=== PATIENT | male | born 1960 | race Caucasian/White ===

== ENCOUNTER 2017-11-01 07:38 | Day surgery (SDC) | payer BC ==
[2017-10-30 11:54] VITALS: BMI 28.8
[~2017-11-01 07:38] MED LIST: DEXAMETHASONE SOD PHOSPHATE 10 MG/ML 1 ML VIAL IV ONE; LACTATED RINGERS 1,000 ML IV SCH; MIDAZOLAM 2 MG/2 ML VIAL IV PRN; ONDANSETRON 4 MG/2 ML VIAL IVP ONE; SCOPOLAMINE 1.5MG/72HR PATCH TRANSDERM ONE; ceFAZolin IN SWFI 2 GM/20 ML SYRINGE IVP ONE; fentaNYL (PF) 50 MCG/ML 2 ML AMP IV PRN
[2017-11-01] MEDS ORDERED: LIDOCAINE 1% 20 ML VIAL (10MG/ML) FOR IV START INTRADERMA ONE (08:19)
[2017-11-01] MEDS ORDERED: GLYCOPYRROLATE 0.2 MG/ML 2 ML VIAL ONE (09:21)
[2017-11-01] MEDS ORDERED: HYDROmorphone (PF) 1 MG/ML ONE (09:21)
[2017-11-01] MEDS ORDERED: PROPOFOL 10 MG/ML 20 ML VIAL IV ONE (09:21)
[2017-11-01] MEDS ORDERED: LIDOCAINE 1% INJ 10MG/ML (20 ML MDV) ONE (09:21)
[2017-11-01] MEDS ORDERED: MIDAZOLAM 2 MG/2 ML VIAL ONE ×2 (09:21)
[2017-11-01] MEDS ORDERED: ceFAZolin 1,000 MG in SODIUM CHLORIDE 0.9% 1,000 ML IRRIGATION ONE (09:49)
[2017-11-01] MEDS ORDERED: BUPIVACAINE (PF) 0.25% 30 ML VIAL SQ ONE (10:12)
[2017-11-01 10:43] VITALS: TEMP 97
--- NOTE | 2017-11-01 11:40 | FL ---
EXAMINATION TYPE: FL guidance operating room DATE OF EXAM: 11/01/2017 CLINICAL HISTORY: Left ankle pain. Open reduction internal fixation of the left ankle fracture. TECHNIQUE: Fluoroscopy. COMPARISON: None. FINDINGS/IMPRESSION: Fluoroscopic guidance was provided during procedure performed by Dr. De La O. A t otal of 7 seconds of fluoroscopic time was utilized during the procedure and 2 spot images was acquir ed demonstrating open reduction internal fixation of the left ankle.
[2017-11-01 11:46] VITALS: RESP 16
[2017-11-01 12:11] VITALS: PULSE 40
[2017-11-01 12:52] VITALS: BP 146/81
--- NOTE | 2017-11-03 20:39 | OP ---
OPERATIVE REPORT DATE OF SURGERY: 11/01/17 SURGEON: Robbin De La O DO PAPER CLEANER: Faviola Newman NP PREOPERATIVE DIAGNOSIS:: Oblique fracture distal left fibula. POSTOPERATIVE DIAGNOSIS:: Oblique fracture distal left fibula. OPERATION:: Open reduction and internal fixation of minimally displaced oblique fracture of the distal left fibula with buttress fixation. ESTIMATED BLOOD LOSS:: SPECIMEN TAKEN:: DESCRIPTION OF THE PROCEDURE: The patient was taken to the operative suite and placed in supine position. General inhalation anesthesia was performed by the department of anesthesiology. A Betadine prep was carried out over the left foot and ankle and prepared. Sterile drapes applied in the usual manner. The pneumatic tourniquet was inflated to 350 mmHg. Lateral incision was developed over the distal fibula and the area of oblique fracture. Blunt dissection through the subcutaneous tissues were performed. Retraction of the superficial nerves and vessels is performed. The periosteum is elevated in preparation for reduction. A lobster balloon clamp was utilized in reducing the fracture anatomically. A 6 hole plate was shaped for position along the distal fibula. The plate was secured with cancellous screws. The lobster clamp was removed and the fracture was stable. X-rays were obtained. The procedure documented its anatomic position. The area was irrigated. Deep fascia approximated with #2-0 Ethibond Vicryl suture. Subcutaneous tissue was approximated with 2-0 Vicryl. The skin approximated with skin clips. Betadine, Adaptic and sterile pressure dressing was applied. A short leg posterior splint was applied. The patient transferred to the recovery room in satisfactory postop condition. GROSS PATHOLOGY: Oblique fracture distal left fibula, minimally displaced MMODL / IJN: [id number] / [facility]
== END 2017-11-01 13:11 | disposition home or self-care (01) ==
LOC: OR 07:38
PROVIDERS: ATTEND Orthopaedic Surgery
DX: S82.832A Other fracture of upper and lower end of left fibula, initial encounter for closed fracture (principal); X50.1XXA Overexertion from prolonged static or awkward postures, initial encounter; Z79.1 Long term (current) use of non-steroidal anti-inflammatories (NSAID); Z79.891 Long term (current) use of opiate analgesic; R00.1 Bradycardia, unspecified; Z79.82 Long term (current) use of aspirin; J44.9 Chronic obstructive pulmonary disease, unspecified; F17.200 Nicotine dependence, unspecified, uncomplicated
CPT/HCPCS: 73600; 27792; C1713; J2250; J1100; J0690 ×2; J2001; J1170; J2704

== ENCOUNTER → 2018-06-03 | Day surgery (SDC) | payer BC ==
[~2018-06-03] MED LIST changes: -DEXAMETHASONE SOD PHOSPHATE 10 MG/ML 1 ML VIAL IV ONE; +GLUCAGON 1 MG/ML VIAL ONE; +LACTATED RINGERS 1,000 ML IV ONE; +LIDOCAINE 1% 20 ML VIAL (10MG/ML) FOR IV START INTRADERMA PRN; +LIDOCAINE 1% INJ 10MG/ML (20 ML MDV) ONE; -MIDAZOLAM 2 MG/2 ML VIAL IV PRN; -ONDANSETRON 4 MG/2 ML VIAL IVP ONE; +PROPOFOL 10 MG/ML 20 ML VIAL IV ONE; -SCOPOLAMINE 1.5MG/72HR PATCH TRANSDERM ONE; -ceFAZolin IN SWFI 2 GM/20 ML SYRINGE IVP ONE; -fentaNYL (PF) 50 MCG/ML 2 ML AMP IV PRN
[2018-06-03 08:40] VITALS: RESP 18; TEMP 97.2
--- NOTE | 2018-06-03 09:05 | P.GSHP ---
History of Present Illness H&P Date: 06/03/18 Chief Complaint: Screening colonoscopy This is a 57-year-old male referred from Dr. Contreras. Patient rents today for screening colonoscopy. Denies a significant GI complaints. Past Medical History Additional Past Medical History / Comment(s): leg cramps History of Any Multi-Drug Resistant Organisms: None Reported Past Surgical History: Back Surgery Additional Past Surgical History / Comment(s): LAMINECTOMY 1995, LEFT WRIST 1977 ,rt shoulder repair-2015 Past Anesthesia/Blood Transfusion Reactions: No Reported Reaction Past Psychological History: No Psychological Hx Reported Smoking Status: Former smoker Past Alcohol Use History: None Reported Additional Past Alcohol Use History / Comment(s): JANUARY 15, 2018. HAD SMOKED FOR 35 YRS. Past Drug Use History: None Reported - Past Family History Sister(s) Family Medical History: Cancer Additional Family Medical History / Comment(s): PANCREATIC CA Father Family Medical History: Cancer Medications and Allergies Home Medications Medication Instructions Recorded Confirmed Type Aspirin EC [Ecotrin] 81 mg PO DAILY 07/07/15 06/02/18 History Multivitamins, Thera [Multivitamin 1 tab PO DAILY 06/02/18 06/02/18 History (formulary)] Testosterone Dose Unknown 1 dose IM DIRECTED 06/02/18 06/02/18 History Allergies Allergy/AdvReac Type Severity Reaction Status Date / Time No Known Allergies Allergy Verified 06/02/18 08:21 Surgical - Exam Vital Signs Temp Pulse Resp BP Pulse Ox 97.2 F L 78 18 165/97 99 06/03/18 08:38 06/03/18 08:38 06/03/18 08:38 06/03/18 08:38 06/03/18 08:38 - General well developed, no distress - Eyes PERRL - ENT normal pinna - Neck no masses - Respiratory normal expansion - Cardiovascular Rhythm: regular - Abdomen Abdomen: soft, non tender Assessment and Plan Assessment: We'll perform screening colonoscopy.
--- NOTE | 2018-06-03 09:28 | P.OP ---
Date of Procedure: 06/03/18 Preoperative Diagnosis: Screening colonoscopy Postoperative Diagnosis: Diverticulosis Incomplete colonoscopy Procedure(s) Performed: Colonoscopy Anesthesia: MAC Surgeon: Jag Liang Pathology: none sent Condition: stable Disposition: PACU Description of Procedure: The patient's placed on the endoscopy table in the lateral position. He received IV sedation. Digital rectal exam was performed which revealed no abnormalities. The prostate was symmetric without nodules. The possible colonoscope was then placed patient anus passed with colon. The scope could not be passed beyond the splenic flexure secondary to tortuosity valve. Several times made to maneuver the colonoscope. There was significant spasm of the colon. Glucagon was given. The scope could not be advanced. At this point scope withdrawn and the descending colon appeared normal. In the sigmoid colon there is diverticular changes. Scope was then brought back the rectum. Scope was withdrawn for patient. Patient was scheduled for a barium enema.
[2018-06-03 10:14] VITALS: BP 139/80; PULSE 62
--- NOTE | 2018-06-03 20:23 | FL ---
EXAMINATION TYPE: FL barium enema DATE OF EXAM: 06/03/2018 CLINICAL HISTORY: 57-year-old male incomplete routine screening colonoscopy. Endoscope unable to be a dvanced beyond the splenic flexure. TECHNIQUE: A double contrast barium enema study is performed. COMPARISON: None. FINDINGS: Certified Financial Planner view of the abdomen shows nonobstructive bowel gas pattern with residual air throughout the col on. There is mild diverticular change within the sigmoid colon. Additional couple small diverticula withi n the descending colon. No evidence of any mass or polyp, obstructing or constricting lesion througho ut the colon. The appendix was filled and appeared normal. The terminal ileum was refluxed and appears within norm al limits. IMPRESSION: Mild diverticular change in the left side of the colon. No suspicious mass or polyp identified.
== END | disposition home or self-care (01) ==
LOC: ORWHC2ENDO 08:19
PROVIDERS: ATTEND Surgery
DX: Z12.11 Encounter for screening for malignant neoplasm of colon (principal); Q43.8 Other specified congenital malformations of intestine; K58.9 Irritable bowel syndrome, unspecified; K57.30 Diverticulosis of large intestine without perforation or abscess without bleeding; Z87.891 Personal history of nicotine dependence; Z79.82 Long term (current) use of aspirin; Z79.890 Hormone replacement therapy
CPT/HCPCS: 74270; 45330; J1610; J2001; J2704

== ENCOUNTER 2018-12-07 19:58 | Emergency (ER) | payer BC ==
[2018-12-07 20:05] VITALS: BP 142/74; PULSE 57; RESP 22; TEMP 98.8
[2018-12-07] MEDS ORDERED: BUPIVACAINE (PF) 0.5% 30 ML VIAL MISCELLANE STA (20:22)
--- NOTE | 2018-12-07 20:26 | ED ---
Wound/Laceration HPI - General Chief Complaint: Wound/Laceration Stated Complaint: Finger Lac Time Seen by Provider: 12/07/18 20:07 Source: patient, family Mode of arrival: ambulatory Limitations: no limitations - History of Present Illness Initial Comments: 57 yoM presenting with laceration to 3rd and 4th digits on right after a saw malfunctioned. Denies numbness or decreased ROM. No blood thinner usage. Tetanus UTD. No other injuries Onset/Timin -: hour(s) Location: other (right hand) Extremity Location: Right: Hand Place: home Patient Tetanus UTD: Yes Context: accidental Associated Symptoms: pain Treatments Prior to Arrival: bandage - Related Data Home Medications Medication Instructions Recorded Confirmed Aspirin EC [Ecotrin] 81 mg PO DAILY 07/07/15 12/07/18 Previous Rx's Medication Instructions Recorded Acetaminophen [Acetaminophen ER] 650 mg PO Q6HR PRN #30 tablet.er 12/07/18 Allergies Allergy/AdvReac Type Severity Reaction Status Date / Time No Known Allergies Allergy Verified 12/07/18 20:22 Review of Systems ROS Statement: Those systems with pertinent positive or pertinent negative responses have been documented in the HPI. Review of Systems Constitutional: Denies fever, chills Eyes: Denies change in vision, Denies pain Ears, nose, mouth, throat: Denies headaches, Denies sore throat Cardiovascular: Denies chest pain. Denies palpitations Respiratory: Denies shortness of breath, Denies cough Gastrointestinal: Denies abdominal pain. Denies nausea, vomiting, diarrhea. Genitourinary: Denies hematuria, Denies infections Musculoskeletal: Denies pain, Denies swelling Integumentary: Positive wound Neurological: Denies headache, focal weakness, focal numbness Psychiatric: Denies anxiety, Denies depression Hematologic/Lymphatic: Denies easy bleeding or bruising ROS Other: All systems not noted in ROS Statement are negative. Past Medical History Additional Past Medical History / Comment(s): leg cramps History of Any Multi-Drug Resistant Organisms: None Reported Past Surgical History: Back Surgery, Orthopedic Surgery Additional Past Surgical History / Comment(s): LAMINECTOMY 1995, LEFT WRIST 1977,rt shoulder repair-2016 Past Anesthesia/Blood Transfusion Reactions: No Reported Reaction Past Psychological History: No Psychological Hx Reported Smoking Status: Former smoker Past Alcohol Use History: None Reported Past Drug Use History: None Reported - Past Family History Sister(s) Family Medical History: Cancer Additional Family Medical History / Comment(s): PANCREATIC CA Father Family Medical History: Cancer General Exam - General Exam Comments Initial Comments: General: Awake, alert, No acute Distress HENT: Normocephalic. Atraumatic Eyes: PERRL. EOMI. No scleral icterus. No injected conjunctiva Neck: Full ROM Chest/Lungs: Clear to auscultation bilaterally. No wheezing, rhonchi, or rales Cardiac: Regular rate, rhythm. No murmurs or rubs Abdomen/GI: Soft, nontender, nondistended. No rebound, guarding, or rigidity. Musculoskeletal: Full ROM. Full ROM of right hand including PIPs when DIPs isolated. Skin: Warm, dry. Laceration through the extensor surface of the 3rd and 4th digits on the right hand with controlled bleeding. Neurologic: A/Ox3, no weakness, no sensory deficit, no abnormal gait, no coordination deficit. C5-T1 sensation intact bilaterally Limitations: no limitations Course Vital Signs 12/07/18 20:01 Temperature 98.8 F Pulse Rate 57 L Respiratory 22 Rate Blood Pressure 142/74 O2 Sat by Pulse 97 Oximetry Procedures - Laceration Laceration #1 Indication: laceration Site: hand Description: linear Depth: simple, single layer Anesthetic Used: benzocaine 0.25% Anesthesia Technique: local infiltration Amount (mls): 10 Pre-repair: wound explored, irrigated extensively Type of Sutures: nylon Size of Sutures: 4-0 Number of Sutures: 7 Technique: simple, interrupted Patient Tolerated Procedure: well, no complications Laceration #2 Indication: laceration Site: hand Description: linear, flap Depth: simple, single layer Anesthetic Used: benzocaine 0.25% Amount (mls): 15 Pre-repair: wound explored, irrigated extensively Type of Sutures: nylon Size of Sutures: 4-0 Number of Sutures: 22 Technique: simple, interrupted, other (corner stitch) Patient Tolerated Procedure: well, no complications Medical Decision Making - Medical Decision Making 57 yoM presenting with hand laceration. On initial exam the patient is awake, alert, and in NAD. VSS. Tetanus UTD. Wound extensively irrigated. XR negative. Patient had no evidence of tendon injury on physical exam. He was neurovascularly intact. Lacerations repaired without difficulty. He is stable to follow up here or with his PCP for suture removal. He understands return to ED precautions. No further emergent workup indicated. The patient was given return to ED instructions. They were instructed to follow up with their primary care provider. Stable for discharge at this time. Disposition Clinical Impression: Laceration Disposition: HOME SELF-CARE Condition: Good Instructions (If sedation given, give patient instructions): Care For Your Stitches (ED), Laceration (ED) Additional Instructions: Return to the ED if your fingers becoming swollen, red, numb, you have decreased range of motion, you develop foul smelling drainage from the wound. Present here or to your primary care doc for suture removal in 7-10 days Prescriptions: Acetaminophen [Acetaminophen ER] 650 mg PO Q6HR PRN #30 tablet.er PRN Reason: Pain Is patient prescribed a controlled substance at d/c from ED?: No Referrals: Duarte Contreras MD [Primary Care Provider] - 1-2 days
--- NOTE | 2018-12-07 20:44 | XR ---
EXAMINATION TYPE: XR hand complete RT DATE OF EXAM: 12/07/2018 COMPARISON: NONE HISTORY: Pain TECHNIQUE: 3 views FINDINGS: There is some narrowing at the second and third MP joints. There is narrowing and spurring at the first carpometacarpal joint. There are no erosions. There is no sign of a radiopaque foreign b prosper. I see no fracture nor dislocation. IMPRESSION: No fracture. Osteoarthritis.
--- NOTE | 2018-12-09 06:58 | CDI ---
Documentation Clarification OP Dear Amy GILES, DO, Please do the addendum for size of the laceration site to code the procedure. Thank you, Kathy Poe Pipe Bowl Paint Trimmer If you have any question, Please contact operating room manager at [phone] [facility]
== END 2018-12-07 22:35 | disposition home or self-care (01) ==
LOC: EC 19:58
DX: S61.212A Laceration without foreign body of right middle finger without damage to nail, initial encounter (principal); S61.214A Laceration without foreign body of right ring finger without damage to nail, initial encounter; Z79.82 Long term (current) use of aspirin; Z87.891 Personal history of nicotine dependence; W26.8XXA Contact with other sharp object(s), not elsewhere classified, initial encounter; Y92.009 Unspecified place in unspecified non-institutional (private) residence as the place of occurrence of the external cause
CPT/HCPCS: 12004; 99283

== ENCOUNTER → 2023-06-06 | Outpatient (CLI) | payer OTHER ==
--- NOTE | 2023-06-07 16:05 | MR ---
EXAMINATION TYPE: MR shoulder LT wo con DATE OF EXAM: 06/06/2023 COMPARISON: None HISTORY: Left shoulder pain. TECHNIQUE: Multiplanar, multisequence imaging of the left shoulder is performed without contrast. FINDINGS: There is moderate osteoarthritic change of the AC joint with a downsloping acromion consistent with m ild to moderate shoulder impingement. There are small rim rent tears of the supraspinatus tendon. There is mild tendinosis of the infraspin atus tendon but no discrete tear. The subscapularis tendon is intact. The biceps tendon is normal in signal intensity and position within the bicipital groove and the kenia ps anchor is intact. There is no joint effusion. There is no definite tear of the cartilaginous labrum. There is no subacr omial or subdeltoid bursitis. IMPRESSION: 1. Mild to moderate shoulder impingement secondary to osteophytic change of the C joint and configura tion of the acromion. 2. Rotator cuff tears of the supraspinatus tendon with no musculotendinous retraction.
== END | disposition home or self-care (01) ==
LOC: RADMRIMAIN 15:22
PROVIDERS: ATTEND Orthopaedic Surgery Hand Surgery
DX: M75.41 Impingement syndrome of right shoulder (principal); M75.112 Incomplete rotator cuff tear or rupture of left shoulder, not specified as traumatic; M25.812 Other specified joint disorders, left shoulder